=== PATIENT | male | born 1990 | race African-American/Black ===

== ENCOUNTER 2016-08-12 14:55 | Inpatient (IN) | payer SELFPAY ==
[~2016-08-12 14:55] MED LIST: PROPOFOL 200 MG/20 ML AMP IV ONE
[2016-08-12] MEDS ORDERED: ceFAZolin 2 GM PREMIX 50 ML ONE (14:58)
[2016-08-12] MEDS ORDERED: DIPHTH/TETANUS/ACEL PERTUSSIS (BOOSTER) 0.5 ML VIAL/PFS IM ONE (14:58)
[2016-08-12] MEDS ORDERED: MORPHINE SULFATE 8 MG/ML INJ ONE (15:04)
[2016-08-12] MEDS ORDERED: LIDOCAINE 1%/EPINEPHrine 1:100,000 SOLN 20 ML VIAL ONE (15:05)
[2016-08-12] MEDS ORDERED: ONDANSETRON HCL 4 MG/2 ML VIAL ONE (15:05)
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
[2016-08-12 15:30] LABS: AUTOMATED NEUTROPHIL # 10.9 TH/MM3 (1.8-7.7); BASOPHIL # 0.1 TH/MM3 (0-0.2); BASOPHIL % 0.6 % (0.0-2.0); EOSINOPHIL # 0.2 TH/MM3 (0-0.4); EOSINOPHIL % 1.6 % (0.0-4.0); HEMATOCRIT 41.3 % (39.0-51.0); HEMO FLAGS DIFF FINAL; LYMPH % 19.4 % (9.0-44.0); LYMPHOCYTE # 2.9 TH/MM3 (1.0-4.8); MEAN CELL VOLUME 87.7 FL (80.0-100.0); MEAN CORPUSCULAR HGB CONC 34.1 % (32.0-36.0); MONO % 5.7 % (0.0-8.0); NEUT % 72.7 % (16.0-70.0); PLATELET COUNT 281 TH/MM3 (150-450); RED BLOOD COUNT 4.71 MIL/MM3 (4.50-5.90); RED CELL DISTRIBUTION WIDTH 12.9 % (11.6-17.2); WHITE BLOOD COUNT 14.9 TH/MM3 (4.0-11.0)
[2016-08-12] MEDS ORDERED: SODIUM CHLORIDE 0.9% FLUSH 5 ML FLUSH IVF PRN (15:30)
[2016-08-12 15:36] LABS: APTT (PATIENT) 23.7 SEC (24.3-30.1); INTERNATIONAL NORMALIZED RATIO 1.1 RATIO; PROTHROMBIN TIME - PATIENT 11.9 SEC (9.8-11.6)
[2016-08-12 15:40] LABS: I-STAT POTASSIUM 3.4 MMOL/L (3.5-4.9)
[2016-08-12 15:41] VITALS: O2SAT 100
[2016-08-12 15:57] LABS: BICARBONATE 21.1 MEQ/L (21.0-32.0); POTASSIUM 3.4 MEQ/L (3.5-5.1)
[2016-08-12] MEDS ORDERED: DO NOT ADM ANY ANTICOAGULANT DRUGS XX PRN (16:30)
[2016-08-12] MEDS ORDERED: *MEPERIDINE 25 MG INJ VIAL PERIprocedural Use ONLY ONE (16:30)
[2016-08-12] MEDS ORDERED: *ONDANSETRON 4 MG VIAL PERIprocedural Use ONLY ONE (17:08)
[2016-08-12] MEDS ORDERED: LACTATED RINGER'S 1000 ML INJ 1,000 ML IV ONE (17:15)
[2016-08-12] MEDS ORDERED: *morphine SULFATE 8 MG/ML PERIprocedure ONLY ONE (17:17)
[2016-08-12] MEDS: SODIUM CHLOR 0.9% 1000 ML INJ 1,000 ML IV SCH ×2 (17:21→21:59)
[2016-08-12] MEDS ORDERED: CHLORHEXIDINE GLUCONATE 2 % 1 PACK (2 CLOTHS) TOP PRN (17:30)
[2016-08-12] MEDS ORDERED: MISCELLANEOUS NURSING INFORMATION XX SCH (17:30)
[2016-08-12] MEDS ORDERED: ENALAPRILAT 1.25 MG/ML VIAL IV PRN (17:30)
[2016-08-12] MEDS ORDERED: ONDANSETRON HCL 4 MG/2 ML VIAL IV PRN (17:30)
[2016-08-12] MEDS ORDERED: ACETAMINOPHEN/HYDROcodone 325 MG/5 MG TAB PO PRN (17:30)
[2016-08-12 20:00] VITALS: BP 105/74; PULSE 95; RESP 19; TEMP 98.4; O2SAT 100
[2016-08-12] MEDS ORDERED: PANTOPRAZOLE SODIUM 40 MG VIAL IVP SCH (20:00)
[2016-08-12 21:36] VITALS: O2SAT 99
[2016-08-12] MEDS: ceFAZolin 2 GM PREMIX 50 ML IV SCH (21:59)
[2016-08-12] MEDS: DOCUSATE SODIUM 100 MG CAP PO SCH (22:00)
[2016-08-12] MEDS: ACETAMINOPHEN/HYDROcodone 325 MG/5 MG TAB PO PRN (22:02)
[2016-08-13] VITALS: BP 105/62; PULSE 84; RESP 16; TEMP 98.6; O2SAT 97
[2016-08-13] MEDS: HYDROmorphone HCL PF 1 MG/ML VIAL IVP PRN ×2 (00:27→11:40)
[2016-08-13] MEDS: ceFAZolin 2 GM PREMIX 50 ML IV SCH ×2 (03:46→11:40)
[2016-08-13 04:00] VITALS: BP 114/58; PULSE 90; RESP 16; TEMP 97.6; O2SAT 99
[2016-08-13] MEDS ORDERED: CHLORHEXIDINE GLUCONATE 2 % 1 PACK (2 CLOTHS) TOP SCH (04:00)
[2016-08-13 06:54] LABS: AUTOMATED NEUTROPHIL # 8.2 TH/MM3 (1.8-7.7); BASOPHIL % 0.3 % (0.0-2.0); EOSINOPHIL # 0.2 TH/MM3 (0-0.4); EOSINOPHIL % 1.4 % (0.0-4.0); HEMATOCRIT 29.4 % (39.0-51.0); HEMO FLAGS DIFF FINAL; LYMPH % 25.2 % (9.0-44.0); LYMPHOCYTE # 3.2 TH/MM3 (1.0-4.8); MEAN CELL VOLUME 88.2 FL (80.0-100.0); MEAN CORPUSCULAR HEMOGLOBIN 30.2 PG (27.0-34.0); MEAN CORPUSCULAR HGB CONC 34.2 % (32.0-36.0); MONO % 9.4 % (0.0-8.0); NEUT % 63.7 % (16.0-70.0); PLATELET COUNT 191 TH/MM3 (150-450); RED BLOOD COUNT 3.33 MIL/MM3 (4.50-5.90); WHITE BLOOD COUNT 12.9 TH/MM3 (4.0-11.0)
[2016-08-13 08:00] VITALS: BP 120/65; PULSE 99; RESP 20; TEMP 98; O2SAT 98
[2016-08-13] MEDS: ACETAMINOPHEN/HYDROcodone 325 MG/5 MG TAB PO PRN ×2 (08:11→13:15)
[2016-08-13] MEDS: DOCUSATE SODIUM 100 MG CAP PO SCH (08:11)
[2016-08-13] MEDS ORDERED: LACTULOSE SYRUP 20 GM/30 ML CUP PO ONE (09:00)
[2016-08-13] MEDS ORDERED: POTASSIUM CHLORIDE 10 MEQ CONTROLLED RELEASE TAB PO ONE (09:00)
[2016-08-13 10:15] VITALS: O2SAT 100
[2016-08-13] MEDS: SODIUM CHLORIDE 0.9% FLUSH 5 ML FLUSH IVF PRN ×2 (11:41→12:39)
[2016-08-13 11:55] VITALS: BP 139/82; PULSE 98; RESP 19; TEMP 97.8; O2SAT 100
[2016-08-13] MEDS ORDERED: ACETAMINOPHEN 325 MG TAB PO PRN (12:15)
[2016-08-13] MEDS ORDERED: ACET325T PO (12:19)
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
== END 2016-08-13 13:25 | DRG 908 ==
LOC: NEPI 14:55 → NEDA 15:25 → EDBD 17:24 → OBSVTOIN 17:24 → N07A 18:44
PROVIDERS: ADMIT Surgery; ATTEND Surgery
PROC: 05QY0ZZ Repair Upper Vein, Open Approach (ICD-10-PCS; 2016-08-12)
PROC: 0KQ70ZZ Repair Right Upper Arm Muscle, Open Approach (ICD-10-PCS; principal; 2016-08-12 15:30)
DX: S45.811A Laceration of other specified blood vessels at shoulder and upper arm level, right arm, initial encounter (principal); S46.321A Laceration of muscle, fascia and tendon of triceps, right arm, initial encounter; I95.9 Hypotension, unspecified; X99.9XXA Assault by unspecified sharp object, initial encounter
CPT/HCPCS: 71010; 80048; 82435; 82565; 82947; 84132; 84295; 84520; 85025; 85610; 85730; 86850; 86900; 86901; 87641; 90471; 90715; 96374; 96375; 99291; C9113; G0390; J0690; J1170; J2175; J2270; J2405; J7030